=== PATIENT | male | born 1940 | race Caucasian/White ===

== ENCOUNTER 2021-02-13 09:39 | Inpatient (IN) | payer MEDICARE, MEDICAID ==
[2021-02-13 10:18] LABS: Hemoglobin 7.6 g/dL (13.5-17.5); Mean Corpuscular HGB CONC 29.1 g/dL (32.0-36.0); Mean Corpuscular Hemoglobin 32.3 pg (27.0-33.0); Mean Corpuscular Volume 111.1 fl (81.2-95.1); Mean Platelet Volume 9.6 fl (7.4-10.4); Platelet Count 124 10x3/uL (150-450); RBC Distribution Width 16.9 % (11.5-14.5); Red Blood Cell (RBC) Count 2.35 10x6/uL (4.32-5.72); White Blood Cell (WBC) Count 9.9 10x3/uL (3.5-10.5)
[2021-02-13 10:35] LABS: MDiff Complete? YES
[2021-02-13 10:45] LABS: ALT (SGPT) 10 U/L (8-55); AST (SGOT) 22 U/L (5-34); Albumin 2.1 g/dL (3.4-4.8); Alkaline Phosphatase 80 U/L (40-110); Anion Gap 15 mmol/L (10-20); BUN (Urea Nitrogen) 71 mg/dL (8.4-25.7); Bilirubin, Total 0.2 mg/dL (0.2-1.2); Calc. Creatinine Clearance 0 mL/min (70-130); Calcium 8.8 mg/dL (7.8-10.44); Carbon Dioxide 17 mmol/L (23-31); Globulin 4.6 g/dL (2.4-3.5); Glucose 89 mg/dL (83-110); Potassium 4.6 mmol/L (3.5-5.1); Protein, Total 6.7 g/dL (5.8-8.1); Sodium 154 mmol/L (136-145)
[2021-02-13 10:50] LABS: Chloride 127 mmol/L (98-107)
[2021-02-13 10:58] LABS: Band 11 % (5-11); Lymphocytes 15 % (21-51); Metamyelocyte 1 % (0-0); Monocytes 11 % (0-10); Myelocyte 1 % (0-0); Neutrophil 61 % (42-75)
[2021-02-13 10:59] LABS: Macrocytosis SLIGHT = 6-15 cells (100X) (0-5/hpf)
[2021-02-13] MEDS ORDERED: Cefepime 2 GM VIAL ONE (10:59)
[2021-02-13 11:00] LABS: Hypochromia SLIGHT = 6-15 cells (100X) (0-5/hpf)
[2021-02-13 11:01] LABS: Platelet Morphology Comment Appears Decreased
[2021-02-13 11:06] LABS: CKMB 3.9 ng/mL (0-6.6)
[2021-02-13] MEDS ORDERED: Acetaminophen 650 MG Suppository PR PRN (13:27)
[2021-02-13] MEDS ORDERED: Acetaminophen 325 MG TAB PO PRN (13:27)
[2021-02-13 13:34] LABS: Lactic Acid 1.9 mmol/L (0.5-2.2)
[2021-02-13] MEDS ORDERED: Dextrose 5% in Water 1,000 ML IV SCH (14:00)
[2021-02-13] MEDS ORDERED: Pharmacy to Dose UNASYN IVPB PRN (14:07)
[2021-02-13 14:42] LABS: Troponin I 0.033 ng/mL (< 0.028)
[2021-02-13 15:09] LABS: Anion Gap 15 mmol/L (10-20); BUN (Urea Nitrogen) 69 mg/dL (8.4-25.7); Calc. Creatinine Clearance 0 mL/min (70-130); Calcium 8.2 mg/dL (7.8-10.44); Carbon Dioxide 16 mmol/L (23-31); Glucose 91 mg/dL (83-110); Potassium 4.8 mmol/L (3.5-5.1); Sodium 154 mmol/L (136-145)
[2021-02-13 15:11] LABS: Hemoglobin 7.8 g/dL (13.5-17.5)
[2021-02-13 15:32] LABS: Chloride 128 mmol/L (98-107)
[2021-02-13 16:05] LABS: Base Excess (BEa) -7.9 mEq/L (-2.0 to +3.0); Calcium, Ionized (arterial) 1.27 mmol/L (1.12-1.30); Carboxyhemoglobin (COHb) 1.1 gm% (0.0-3.0); Hemoglobin (Hb) 8.4 g/dL (14.0-18.0); O2 Tension (PaO2), arterial 71.1 mmHg (> 70.0); Potassium - ABG Lab 4.7 mmol/L (3.70-5.30); Puncture Site RRA; pH, Arterial 7.34 (7.35-7.45)
[2021-02-13 16:09] VITALS: BMI 21.1
[2021-02-13] MEDS ORDERED: Vancomycin HCl 500 MG in Sodium Chloride 0.9% 100 ML IVPB SCH (16:30)
[2021-02-13] MEDS ORDERED: Vancomycin 1 GM in Premix Bag 1 BAG IVPB SCH (16:30)
[2021-02-13] MEDS ORDERED: Vancomycin HCl 250 MG in Sodium Chloride 0.9% 100 ML IVPB SCH (16:30)
[2021-02-13] MEDS ORDERED: HOLD VANCOMYCIN FOR LEVEL >20 FS SCH (16:30)
[2021-02-13] MEDS ORDERED: Vancomycin HCl 750 MG in Sodium Chloride 0.9% 250 ML 250 ML IVPB SCH (16:30)
[2021-02-13 17:46] LABS: Anion Gap 15 mmol/L (10-20); BUN (Urea Nitrogen) 68 mg/dL (8.4-25.7); Calc. Creatinine Clearance 18 mL/min (70-130); Carbon Dioxide 14 mmol/L (23-31); Glucose 80 mg/dL (83-110); Potassium 5.1 mmol/L (3.5-5.1); Sodium 153 mmol/L (136-145)
[2021-02-13 17:58] LABS: Chloride 129 mmol/L (98-107)
[2021-02-13] MEDS: Acetylcysteine 800 MG/4 ML VIAL INH SCH (18:35)
[2021-02-13] MEDS ORDERED: Sodium Bicarbonate 50 MEQ in Dextrose 5% in Water 1,000 ML IV SCH (19:00)
[2021-02-13 20:03] LABS: Troponin I 0.041 ng/mL (< 0.028)
[2021-02-13 20:52] LABS: Hemoglobin 7.8 g/dL (13.5-17.5)
[2021-02-13] MEDS ORDERED: Desmopressin 0.2 mg Tablet PO SCH (21:00)
[2021-02-13 21:03] LABS: Anion Gap 15 mmol/L (10-20); BUN (Urea Nitrogen) 66 mg/dL (8.4-25.7); Calc. Creatinine Clearance 18 mL/min (70-130); Calcium 9.2 mg/dL (7.8-10.44); Carbon Dioxide 17 mmol/L (23-31); Glucose 96 mg/dL (83-110); Potassium 4.5 mmol/L (3.5-5.1); Sodium 155 mmol/L (136-145)
[2021-02-13 21:05] LABS: Chloride 128 mmol/L (98-107)
[2021-02-14] MEDS: Acetylcysteine 800 MG/4 ML VIAL INH SCH ×4 (00:40→19:03)
[2021-02-14 05:07] LABS: Vancomycin, Random 11.4 ug/mL (See Comment)
[2021-02-14 05:09] LABS: Hemoglobin 7.6 g/dL (13.5-17.5); Mean Corpuscular HGB CONC 29.7 g/dL (32.0-36.0); Mean Corpuscular Hemoglobin 32.2 pg (27.0-33.0); Mean Corpuscular Volume 108.5 fl (81.2-95.1); Mean Platelet Volume 9.5 fl (7.4-10.4); Platelet Count 120 10x3/uL (150-450); RBC Distribution Width 16.9 % (11.5-14.5); Red Blood Cell (RBC) Count 2.36 10x6/uL (4.32-5.72)
[2021-02-14 05:11] LABS: Anion Gap 14 mmol/L (10-20); BUN (Urea Nitrogen) 61 mg/dL (8.4-25.7); Calc. Creatinine Clearance 20 mL/min (70-130); Calcium 9.3 mg/dL (7.8-10.44); Carbon Dioxide 18 mmol/L (23-31); Glucose 110 mg/dL (83-110); Potassium 4.6 mmol/L (3.5-5.1); Sodium 155 mmol/L (136-145)
[2021-02-14 05:13] LABS: Chloride 128 mmol/L (98-107)
[2021-02-14 05:24] LABS: MDiff Complete? YES
[2021-02-14 05:34] LABS: Band 13 % (5-11); Lymphocytes 19 % (21-51); Monocytes 14 % (0-10); Neutrophil 54 % (42-75)
[2021-02-14 05:35] LABS: Platelet Morphology Comment Appears Decreased; RBC Morphology Normal
[2021-02-14] MEDS ORDERED: Vancomycin 1 GM in Premix Bag 1 BAG IVPB PRN (06:45)
[2021-02-14] MEDS ORDERED: Sodium Bicarbonate 50 MEQ in Dextrose 5% in Water 1,000 ML IV SCH (07:30)
[2021-02-14 07:36] LABS: SARS-CoV-2 NAA Rapid Test Not Detected (NotDetected)
[2021-02-14] MEDS ORDERED: Vancomycin HCl 1 GM in Sodium Chloride 0.9% 250 ML 250 ML IVPB SCH (08:00)
[2021-02-14] MEDS: Dextrose 5% in Water 1,000 ML IV SCH ×2 (08:15→17:15)
[2021-02-14 09:51] LABS: Iron 17 ug/dL (65-175); Iron Binding Capacity, Total 125 mcg/dL (261-462)
[2021-02-14 10:06] LABS: Anion Gap 15 mmol/L (10-20); BUN (Urea Nitrogen) 59 mg/dL (8.4-25.7); Calc. Creatinine Clearance 20 mL/min (70-130); Calcium 9.4 mg/dL (7.8-10.44); Carbon Dioxide 18 mmol/L (23-31); Glucose 90 mg/dL (83-110); Potassium 4.5 mmol/L (3.5-5.1); Sodium 156 mmol/L (136-145)
[2021-02-14 10:11] LABS: Chloride 128 mmol/L (98-107)
[2021-02-14] MEDS: Cefepime 0.5 GM, Admixture Fee 1 EACH in Sodium Chloride 0.9% 100 ML IVPB SCH (12:00)
[2021-02-14 17:45] LABS: Anion Gap 14 mmol/L (10-20); BUN (Urea Nitrogen) 59 mg/dL (8.4-25.7); Calc. Creatinine Clearance 21 mL/min (70-130); Calcium 9.8 mg/dL (7.8-10.44); Carbon Dioxide 18 mmol/L (23-31); Glucose 84 mg/dL (83-110); Potassium 4.3 mmol/L (3.5-5.1); Sodium 154 mmol/L (136-145)
[2021-02-14 18:03] LABS: Chloride 126 mmol/L (98-107)
[2021-02-14] MEDS ORDERED: Sodium Bicarbonate 50 MEQ, Admixture Fee 1 EACH in Dextrose 5% in Water 1,000 ML IV SCH (18:30)
[2021-02-14 22:01] LABS: Anion Gap 13 mmol/L (10-20); BUN (Urea Nitrogen) 58 mg/dL (8.4-25.7); Calc. Creatinine Clearance 21 mL/min (70-130); Calcium 9.7 mg/dL (7.8-10.44); Carbon Dioxide 18 mmol/L (23-31); Glucose 105 mg/dL (83-110); Sodium 153 mmol/L (136-145)
[2021-02-14 22:09] LABS: Chloride 126 mmol/L (98-107)
[2021-02-15] MEDS: Acetylcysteine 800 MG/4 ML VIAL INH SCH ×4 (01:50→19:15)
[2021-02-15 06:30] LABS: Hemoglobin 7.7 g/dL (13.5-17.5); Mean Corpuscular HGB CONC 30.4 g/dL (32.0-36.0); Mean Corpuscular Hemoglobin 32.5 pg (27.0-33.0); Mean Corpuscular Volume 106.8 fl (81.2-95.1); Mean Platelet Volume 9.7 fl (7.4-10.4); Platelet Count 137 10x3/uL (150-450); RBC Distribution Width 16.8 % (11.5-14.5); Red Blood Cell (RBC) Count 2.37 10x6/uL (4.32-5.72)
[2021-02-15 06:42] LABS: MDiff Complete? YES
[2021-02-15 06:43] LABS: Platelet Morphology Comment Appears Adequate
[2021-02-15 06:44] LABS: Anisocytosis SLIGHT = 6-15 cells (100X) (0-5/hpf); Hypochromia MODERATE=16-30 cells (100X) (0-5/hpf)
[2021-02-15 06:45] LABS: Anion Gap 14 mmol/L (10-20); BUN (Urea Nitrogen) 52 mg/dL (8.4-25.7); Calc. Creatinine Clearance 22 mL/min (70-130); Calcium 9.8 mg/dL (7.8-10.44); Carbon Dioxide 18 mmol/L (23-31); Chloride 123 mmol/L (98-107); Glucose 102 mg/dL (83-110); Potassium 4.2 mmol/L (3.5-5.1); Sodium 151 mmol/L (136-145)
[2021-02-15 06:47] LABS: Band 16 % (5-11); Eosinophils 1 % (0-10); Lymphocytes 11 % (21-51); Monocytes 15 % (0-10); Neutrophil 49 % (42-75)
[2021-02-15 06:48] LABS: Metamyelocyte 5 % (0-0); Promyelocytes 1 % (0-0)
[2021-02-15] MEDS ORDERED: Lorazepam 2 MG/ML VIAL SLOW IVP PRN (08:19)
[2021-02-15] MEDS ORDERED: Metoprolol Tartrate 5 MG/5 ML VIAL IVP SCH (08:30)
[2021-02-15] MEDS ORDERED: FLU VACC QS2021-22(65YR UP)/PF 240 MCG/0.7 ML SYRINGE IM ONE (09:00)
[2021-02-15] MEDS: Dextrose 5% in Water 1,000 ML IV SCH (09:23)
[2021-02-15] MEDS: acetaZOLAMIDE Sodium 500 mg Vial IVP SCH ×2 (09:29→23:25)
[2021-02-15 09:32] LABS: Vancomycin, Random 17.6 ug/mL (See Comment)
[2021-02-15] MEDS: Valproate Sodium 500 MG, Admixture Fee 1 EACH in Sodium Chloride 0.9% 100 ML IVPB SCH ×2 (09:45→23:13)
[2021-02-15] MEDS: Cefepime 0.5 GM, Admixture Fee 1 EACH in Sodium Chloride 0.9% 100 ML IVPB SCH (11:50)
[2021-02-15] MEDS ORDERED: Acetylcysteine 800 MG/4 ML VIAL ONE (14:45)
[2021-02-15] MEDS: Sodium Bicarbonate 150 MEQ, Admixture Fee 1 EACH in Dextrose 5% in Water 1,000 ML IV SCH (14:57)
[2021-02-15 20:23] LABS: Anion Gap 13 mmol/L (10-20); BUN (Urea Nitrogen) 46 mg/dL (8.4-25.7); Calc. Creatinine Clearance 23 mL/min (70-130); Calcium 9.6 mg/dL (7.8-10.44); Carbon Dioxide 21 mmol/L (23-31); Chloride 120 mmol/L (98-107); Glucose 98 mg/dL (83-110); Potassium 3.4 mmol/L (3.5-5.1); Sodium 151 mmol/L (136-145)
[2021-02-15] MEDS: Vancomycin HCl 1 GM in Sodium Chloride 0.9% 250 ML 250 ML IVPB SCH (23:14)
[2021-02-16] MEDS: Dextrose 5% in Water 1,000 ML IV SCH ×6 (01:32→23:17)
[2021-02-16] MEDS: Acetylcysteine 800 MG/4 ML VIAL INH SCH ×2 (01:47→07:00)
[2021-02-16 05:41] LABS: Hemoglobin 8.1 g/dL (13.5-17.5); Mean Corpuscular Volume 106.7 fl (81.2-95.1); Mean Platelet Volume 9.6 fl (7.4-10.4); Platelet Count 152 10x3/uL (150-450); Red Blood Cell (RBC) Count 2.53 10x6/uL (4.32-5.72); White Blood Cell (WBC) Count 10.4 10x3/uL (3.5-10.5)
[2021-02-16 05:43] LABS: Anion Gap 15 mmol/L (10-20); BUN (Urea Nitrogen) 45 mg/dL (8.4-25.7); Calc. Creatinine Clearance 24 mL/min (70-130); Calcium 9.4 mg/dL (7.8-10.44); Carbon Dioxide 22 mmol/L (23-31); Chloride 123 mmol/L (98-107); Glucose 86 mg/dL (83-110); Potassium 3.9 mmol/L (3.5-5.1); Sodium 156 mmol/L (136-145)
[2021-02-16 06:03] LABS: MDiff Complete? YES
[2021-02-16 06:09] LABS: Band 18 % (5-11); Lymphocytes 23 % (21-51); Metamyelocyte 6 % (0-0); Monocytes 12 % (0-10); Myelocyte 1 % (0-0); Neutrophil 38 % (42-75); Nucleated RBC 3 % (0); Promyelocytes 2 % (0-0)
[2021-02-16] MEDS: Valproate Sodium 500 MG, Admixture Fee 1 EACH in Sodium Chloride 0.9% 100 ML IVPB SCH ×2 (07:45→21:24)
[2021-02-16] MEDS: Sodium Bicarbonate 150 MEQ, Admixture Fee 1 EACH in Dextrose 5% in Water 1,000 ML IV SCH (07:47)
[2021-02-16] MEDS ORDERED: Docusate 100 MG CAP PO PRN (08:02)
[2021-02-16] MEDS ORDERED: Polyethylene Glycol 3350 17 GM Packet PO PRN (08:02)
[2021-02-16] MEDS ORDERED: Levothyroxine Sodium 88 MCG TAB PO SCH (08:15)
[2021-02-16] MEDS ORDERED: Metoprolol Tartrate 5 MG/5 ML VIAL IVP SCH (08:50)
[2021-02-16] MEDS: Trospium 20 MG TAB PO SCH (11:15)
[2021-02-16] MEDS: Multivitamin W/ Minerals 1 TAB PO SCH (11:16)
[2021-02-16 11:47] LABS: Anion Gap 11 mmol/L (10-20); BUN (Urea Nitrogen) 43 mg/dL (8.4-25.7); Calc. Creatinine Clearance 24 mL/min (70-130); Calcium 9.1 mg/dL (7.8-10.44); Carbon Dioxide 26 mmol/L (23-31); Chloride 120 mmol/L (98-107); Glucose 105 mg/dL (83-110); Potassium 3.1 mmol/L (3.5-5.1); Sodium 154 mmol/L (136-145)
[2021-02-16] MEDS: Vancomycin 1 GM in Premix Bag 1 BAG IVPB SCH ×2 (12:21→12:40)
[2021-02-16] MEDS: Cefepime 0.5 GM, Admixture Fee 1 EACH in Sodium Chloride 0.9% 100 ML IVPB SCH (12:25)
[2021-02-16] MEDS: Metoprolol Tartrate 5 MG/5 ML VIAL IVP SCH ×2 (12:26→17:17)
[2021-02-16] MEDS ORDERED: Potassium Phosphate 15 MMOL, Admixture Fee 1 EACH in Sodium Chloride 0.9% 250 ML 250 ML IVPB SCH (16:00)
[2021-02-16 17:50] LABS: Anion Gap 14 mmol/L (10-20); BUN (Urea Nitrogen) 41 mg/dL (8.4-25.7); Calc. Creatinine Clearance 25 mL/min (70-130); Calcium 9.1 mg/dL (7.8-10.44); Carbon Dioxide 22 mmol/L (23-31); Chloride 118 mmol/L (98-107); Glucose 91 mg/dL (83-110); Potassium 3.3 mmol/L (3.5-5.1); Sodium 151 mmol/L (136-145)
[2021-02-16] MEDS: Mirtazapine 15 MG TAB PO SCH (21:10)
[2021-02-17] MEDS: Metoprolol Tartrate 5 MG/5 ML VIAL IVP SCH ×4 (01:31→18:29)
[2021-02-17] MEDS: Dextrose 5% in Water 1,000 ML IV SCH ×3 (04:46→15:22)
[2021-02-17] MEDS: Levothyroxine Sodium 88 MCG TAB PO SCH (05:09)
[2021-02-17] MEDS: Vancomycin HCl 1 GM in Sodium Chloride 0.9% 250 ML 250 ML IVPB SCH (08:10)
[2021-02-17] MEDS: Valproate Sodium 500 MG, Admixture Fee 1 EACH in Sodium Chloride 0.9% 100 ML IVPB SCH ×2 (08:10→20:36)
[2021-02-17] MEDS: Potassium Bicarbonate/Cit Ac 20 MEQ TAB PO SCH ×2 (08:23→11:10)
[2021-02-17] MEDS: AcetaZOLAMIDE 250 MG TAB PO SCH ×2 (08:24→22:14)
[2021-02-17] MEDS: Multivitamin W/ Minerals 1 TAB PO SCH (08:24)
[2021-02-17] MEDS: Trospium 20 MG TAB PO SCH (08:24)
[2021-02-17] MEDS: Sodium Bicarbonate Tab 325 MG TAB PO SCH ×2 (08:24→22:14)
[2021-02-17 10:14] LABS: Vancomycin, Trough 18.8 ug/mL
[2021-02-17 10:16] LABS: Anion Gap 13 mmol/L (10-20); BUN (Urea Nitrogen) 37 mg/dL (8.4-25.7); Calc. Creatinine Clearance 26 mL/min (70-130); Calcium 8.7 mg/dL (7.8-10.44); Carbon Dioxide 25 mmol/L (23-31); Chloride 113 mmol/L (98-107); Glucose 70 mg/dL (83-110); Sodium 148 mmol/L (136-145)
[2021-02-17 10:24] LABS: Potassium 2.6 mmol/L (3.5-5.1)
[2021-02-17] MEDS ORDERED: Potassium Chloride 40 MEQ in Premix Bag 1 BAG IVPB SCH ×2 (10:30→15:15)
[2021-02-17] MEDS: Potassium Chloride 20 MEQ in Premix Bag 1 BAG IVPB SCH ×6 (10:48→22:01)
[2021-02-17] MEDS: Cefepime 0.5 GM, Admixture Fee 1 EACH in Sodium Chloride 0.9% 100 ML IVPB SCH (12:45)
[2021-02-17 14:51] LABS: Anion Gap 10 mmol/L (10-20); BUN (Urea Nitrogen) 35 mg/dL (8.4-25.7); Calc. Creatinine Clearance 28 mL/min (70-130); Calcium 8.5 mg/dL (7.8-10.44); Carbon Dioxide 24 mmol/L (23-31); Chloride 115 mmol/L (98-107); Glucose 85 mg/dL (83-110); Sodium 146 mmol/L (136-145)
[2021-02-17 15:02] LABS: Potassium 2.7 mmol/L (3.5-5.1)
[2021-02-17] MEDS: Ampicillin/Sulbactam 3 GM in Sodium Chloride 0.9% 100 ML IVPB SCH (17:48)
[2021-02-17 21:05] LABS: Magnesium 1.7 mg/dL (1.6-2.6)
[2021-02-17] MEDS: Mirtazapine 15 MG TAB PO SCH (22:14)
[2021-02-18] MEDS: Metoprolol Tartrate 5 MG/5 ML VIAL IVP SCH ×4 (00:14→18:01)
[2021-02-18] MEDS: Dextrose 5% in Water 1,000 ML IV SCH ×3 (00:14→17:00)
[2021-02-18] MEDS: Ampicillin/Sulbactam 3 GM in Sodium Chloride 0.9% 100 ML IVPB SCH ×2 (04:52→18:30)
[2021-02-18 05:33] LABS: Hemoglobin 6.9 g/dL (13.5-17.5); Mean Corpuscular HGB CONC 30.8 g/dL (32.0-36.0); Mean Corpuscular Hemoglobin 31.8 pg (27.0-33.0); Mean Corpuscular Volume 103.2 fl (81.2-95.1); Platelet Count 133 10x3/uL (150-450); RBC Distribution Width 17.4 % (11.5-14.5); Red Blood Cell (RBC) Count 2.17 10x6/uL (4.32-5.72); White Blood Cell (WBC) Count 12.6 10x3/uL (3.5-10.5)
[2021-02-18] MEDS: Levothyroxine Sodium 88 MCG TAB PO SCH (05:49)
[2021-02-18 05:52] LABS: MDiff Complete? YES
[2021-02-18 05:53] LABS: Anion Gap 12 mmol/L (10-20); BUN (Urea Nitrogen) 32 mg/dL (8.4-25.7); Calc. Creatinine Clearance 28 mL/min (70-130); Calcium 8.7 mg/dL (7.8-10.44); Carbon Dioxide 20 mmol/L (23-31); Chloride 120 mmol/L (98-107); Glucose 111 mg/dL (83-110); Potassium 4.4 mmol/L (3.5-5.1); Sodium 148 mmol/L (136-145)
[2021-02-18 05:57] LABS: Band 28 % (5-11); Eosinophils 1 % (0-10); Lymphocytes 7 % (21-51); Metamyelocyte 3 % (0-0); Monocytes 4 % (0-10); Myelocyte 6 % (0-0); Neutrophil 50 % (42-75); Reactive Lymphocytes 1 % (0-10)
[2021-02-18 05:58] LABS: Nucleated RBC 1 % (0)
[2021-02-18 05:59] LABS: Platelet Morphology Comment Appears Adequate; RBC Morphology Normal
[2021-02-18 06:02] LABS: Reflex for Review?? YES
[2021-02-18] MEDS ORDERED: Magnesium 2 GM/50 ML 2 GM in Premix Bag 1 BAG IVPB SCH (06:45)
[2021-02-18 09:02] LABS: Hemoglobin 7.2 g/dL (13.5-17.5)
[2021-02-18] MEDS: AcetaZOLAMIDE 250 MG TAB PO SCH (10:06)
[2021-02-18] MEDS: Multivitamin W/ Minerals 1 TAB PO SCH (10:07)
[2021-02-18] MEDS: Trospium 20 MG TAB PO SCH (10:09)
[2021-02-18] MEDS: Sodium Bicarbonate Tab 325 MG TAB PO SCH ×2 (10:09→23:41)
[2021-02-18] MEDS: Valproate Sodium 500 MG, Admixture Fee 1 EACH in Sodium Chloride 0.9% 100 ML IVPB SCH ×2 (10:29→21:45)
[2021-02-18 19:26] LABS: Bilirubin Neg (Negative); Blood, Urine 250 (Negative); Clarity Clear (Clear); Glucose, Urine (Dipstick) Normal (Negative); Ketone, Urine Negative (Negative); Leukocyte 500 (Negative); Nitrite Negative (Negative); Protein, Urine (Dipstick) 15 mg/dl (Neg-Trace); Urobilinogen Normal mg/dL (Less than 2)
[2021-02-18 19:31] LABS: Urine Culture Reflex No No
[2021-02-18 19:46] LABS: Bacteria/HPF Rare-Few HPF (None Seen); Squamous Epithelial 0-3 HPF (0-3)
[2021-02-18] MEDS: Mirtazapine 15 MG TAB PO SCH (23:41)
[2021-02-19] MEDS: Metoprolol Tartrate 5 MG/5 ML VIAL IVP SCH ×4 (00:40→19:52)
[2021-02-19] MEDS: Dextrose 5% in Water 1,000 ML IV SCH ×4 (00:54→19:53)
[2021-02-19 05:32] LABS: Anion Gap 11 mmol/L (10-20); BUN (Urea Nitrogen) 25 mg/dL (8.4-25.7); Calc. Creatinine Clearance 29 mL/min (70-130); Calcium 9.1 mg/dL (7.8-10.44); Carbon Dioxide 20 mmol/L (23-31); Chloride 121 mmol/L (98-107); Glucose 100 mg/dL (83-110); Potassium 4.1 mmol/L (3.5-5.1); Sodium 148 mmol/L (136-145)
[2021-02-19] MEDS: Ampicillin/Sulbactam 3 GM in Sodium Chloride 0.9% 100 ML IVPB SCH ×2 (06:29→19:52)
[2021-02-19] MEDS: Levothyroxine Sodium 88 MCG TAB PO SCH (06:36)
[2021-02-19 06:55] LABS: Hemoglobin 7.2 g/dL (13.5-17.5); Mean Corpuscular HGB CONC 30.3 g/dL (32.0-36.0); Mean Corpuscular Hemoglobin 31.6 pg (27.0-33.0); Mean Corpuscular Volume 104.4 fl (81.2-95.1); Platelet Count 143 10x3/uL (150-450); RBC Distribution Width 17.2 % (11.5-14.5); Red Blood Cell (RBC) Count 2.28 10x6/uL (4.32-5.72); White Blood Cell (WBC) Count 14.6 10x3/uL (3.5-10.5)
[2021-02-19 08:24] LABS: MDiff Complete? YES
[2021-02-19 08:28] LABS: Band 6 % (5-11); Eosinophils 3 % (0-10); Lymphocytes 8 % (21-51); Metamyelocyte 4 % (0-0); Monocytes 4 % (0-10); Myelocyte 3 % (0-0); Neutrophil 66 % (42-75); Promyelocytes 3 % (0-0); Reactive Lymphocytes 2 % (0-10)
[2021-02-19 08:30] LABS: Platelet Morphology Comment Appears Adequate
[2021-02-19 08:31] LABS: Dohle Bodies SLIGHT; RBC Morphology Normal
[2021-02-19] MEDS: Multivitamin W/ Minerals 1 TAB PO SCH (09:21)
[2021-02-19] MEDS: Sodium Bicarbonate Tab 325 MG TAB PO SCH (09:22)
[2021-02-19] MEDS: Trospium 20 MG TAB PO SCH (09:23)
[2021-02-19] MEDS: Valproate Sodium 500 MG, Admixture Fee 1 EACH in Sodium Chloride 0.9% 100 ML IVPB SCH ×2 (09:35→21:40)
[2021-02-20] MEDS: Mirtazapine 15 MG TAB PO SCH ×2 (01:19→20:03)
[2021-02-20] MEDS: Dextrose 5% in Water 1,000 ML IV SCH ×2 (01:20→11:54)
[2021-02-20] MEDS: Metoprolol Tartrate 5 MG/5 ML VIAL IVP SCH ×4 (01:20→18:15)
[2021-02-20] MEDS: Sodium Bicarbonate Tab 325 MG TAB PO SCH ×3 (01:20→20:04)
[2021-02-20 05:23] LABS: Anion Gap 10 mmol/L (10-20); BUN (Urea Nitrogen) 20 mg/dL (8.4-25.7); Calc. Creatinine Clearance 31 mL/min (70-130); Calcium 8.9 mg/dL (7.8-10.44); Carbon Dioxide 19 mmol/L (23-31); Chloride 116 mmol/L (98-107); Glucose 117 mg/dL (83-110); Potassium 3.4 mmol/L (3.5-5.1); Sodium 142 mmol/L (136-145)
[2021-02-20] MEDS: Ampicillin/Sulbactam 3 GM in Sodium Chloride 0.9% 100 ML IVPB SCH ×2 (05:44→18:00)
[2021-02-20] MEDS ORDERED: Dextrose 5% in Water 1,000 ML IV SCH ×2 (06:49→11:31)
[2021-02-20 07:14] LABS: Hemoglobin 7.6 g/dL (13.5-17.5); Mean Corpuscular HGB CONC 29.9 g/dL (32.0-36.0); Mean Corpuscular Hemoglobin 31.3 pg (27.0-33.0); Mean Corpuscular Volume 104.5 fl (81.2-95.1); Mean Platelet Volume 10.2 fl (7.4-10.4); Platelet Count 120 10x3/uL (150-450); RBC Distribution Width 17.2 % (11.5-14.5); Red Blood Cell (RBC) Count 2.43 10x6/uL (4.32-5.72); White Blood Cell (WBC) Count 20.2 10x3/uL (3.5-10.5)
[2021-02-20 07:54] LABS: MDiff Complete? YES
[2021-02-20 07:59] LABS: Band 11 % (5-11); Lymphocytes 13 % (21-51); Monocytes 2 % (0-10); Nucleated RBC 3 % (0); Reactive Lymphocytes 4 % (0-10)
[2021-02-20] MEDS ORDERED: Sodium Bicarbonate 150 MEQ in Dextrose 5% in Water 1,000 ML IV SCH (08:00)
[2021-02-20 08:01] LABS: Neutrophil 57 % (42-75); Platelet Morphology Comment Appears Decreased
[2021-02-20 08:02] LABS: Hypochromia SLIGHT = 6-15 cells (100X) (0-5/hpf); Macrocytosis SLIGHT = 6-15 cells (100X) (0-5/hpf); Polychromasia SLIGHT = 2-3 cells (100X) (0-2/hpf); Reflex for Review?? YES
[2021-02-20] MEDS: Levothyroxine Sodium 88 MCG TAB PO SCH (08:08)
[2021-02-20] MEDS: Multivitamin W/ Minerals 1 TAB PO SCH (11:35)
[2021-02-20] MEDS: Trospium 20 MG TAB PO SCH (11:37)
[2021-02-20] MEDS: Valproate Sodium 500 MG, Admixture Fee 1 EACH in Sodium Chloride 0.9% 100 ML IVPB SCH ×2 (11:37→22:41)
[2021-02-20] MEDS ORDERED: acetaZOLAMIDE Sodium 500 mg Vial IVP SCH (12:30)
[2021-02-20 14:48] LABS: Eosinophils 2 % (0-10)
[2021-02-20 15:01] LABS: Myelocyte 7 % (0-0)
[2021-02-20 15:20] LABS: Promyelocytes 2 % (0-0)
[2021-02-20 15:25] LABS: Metamyelocyte 2 % (0-0)
[2021-02-20] MEDS: acetaZOLAMIDE Sodium 500 mg Vial IVP SCH (22:07)
[2021-02-21] MEDS: Ampicillin/Sulbactam 3 GM in Sodium Chloride 0.9% 100 ML IVPB SCH ×4 (00:03→17:39)
[2021-02-21] MEDS: Metoprolol Tartrate 5 MG/5 ML VIAL IVP SCH ×4 (00:23→17:42)
[2021-02-21] MEDS: Levothyroxine Sodium 88 MCG TAB PO SCH (04:59)
[2021-02-21] MEDS ORDERED: Furosemide 20 MG/2 ML VIAL SLOW IVP SCH (06:00)
[2021-02-21 06:40] LABS: Anion Gap 13 mmol/L (10-20); BUN (Urea Nitrogen) 19 mg/dL (8.4-25.7); Calc. Creatinine Clearance 31 mL/min (70-130); Calcium 8.9 mg/dL (7.8-10.44); Carbon Dioxide 21 mmol/L (23-31); Chloride 118 mmol/L (98-107); Glucose 100 mg/dL (83-110); Sodium 149 mmol/L (136-145)
[2021-02-21 06:49] LABS: Hemoglobin 7.5 g/dL (13.5-17.5); Mean Corpuscular HGB CONC 29.4 g/dL (32.0-36.0); Mean Corpuscular Hemoglobin 31.6 pg (27.0-33.0); Mean Corpuscular Volume 107.6 fl (81.2-95.1); Mean Platelet Volume 10.7 fl (7.4-10.4); Platelet Count 90 10x3/uL (150-450); RBC Distribution Width 17.2 % (11.5-14.5); Red Blood Cell (RBC) Count 2.37 10x6/uL (4.32-5.72); White Blood Cell (WBC) Count 22.6 10x3/uL (3.5-10.5)
[2021-02-21] MEDS ORDERED: Dextrose 5% in Water 1,000 ML IV SCH (07:30)
[2021-02-21] MEDS: Valproate Sodium 500 MG, Admixture Fee 1 EACH in Sodium Chloride 0.9% 100 ML IVPB SCH (08:31)
[2021-02-21] MEDS: Trospium 20 MG TAB PO SCH (08:51)
[2021-02-21] MEDS: Sodium Bicarbonate Tab 325 MG TAB PO SCH (08:51)
[2021-02-21] MEDS: Multivitamin W/ Minerals 1 TAB PO SCH (08:52)
[2021-02-21] MEDS ORDERED: Furosemide 40 MG/4 ML VIAL SLOW IVP PRN (09:32)
[2021-02-21] MEDS: acetaZOLAMIDE Sodium 500 mg Vial IVP SCH (09:59)
[2021-02-21 12:39] LABS: Anion Gap 12 mmol/L (10-20); BUN (Urea Nitrogen) 19 mg/dL (8.4-25.7); Calc. Creatinine Clearance 33 mL/min (70-130); Calcium 8.1 mg/dL (7.8-10.44); Carbon Dioxide 21 mmol/L (23-31); Chloride 117 mmol/L (98-107); Glucose 104 mg/dL (83-110); Potassium 3.2 mmol/L (3.5-5.1); Sodium 147 mmol/L (136-145)
[2021-02-21] MEDS ORDERED: Sodium Chloride 0.9% 100 ML ONE (17:09)
[2021-02-21] MEDS ORDERED: Haloperidol Lactate 5 MG/ML VIAL SLOW IVP PRN (21:30)
[2021-02-21] MEDS ORDERED: Scopolamine 1.5 mg/72 hour Patch TOP PRN ×2 (21:30)
[2021-02-21] MEDS ORDERED: Ondansetron PF 4 MG/2 ML Vial IVP PRN (21:30)
[2021-02-21] MEDS ORDERED: Lorazepam 1 MG TAB PO PRN (21:30)
[2021-02-21] MEDS ORDERED: Lorazepam 2 MG/ML VIAL SLOW IVP PRN (21:30)
[2021-02-21] MEDS ORDERED: Morphine 10 MG/0.5 ML ORAL SYRINGE SL PRN (21:30)
[2021-02-21] MEDS ORDERED: Acetaminophen 650 MG Suppository PR PRN (21:30)
[2021-02-21 23:42] VITALS: BP 112/56; TEMP 95.6
[2021-02-22 16:16] LABS: SARS-CoV-2 PCR by NAA Not Detected (NotDetected)
== END 2021-02-22 04:01 | disposition hospice, inpatient (51) | DRG 871 ==
LOC: CSHERS 09:39 → CSHTELE 14:29
PROVIDERS: ADMIT Internal Medicine; ATTEND Family Medicine
DX: A41.81 Sepsis due to Enterococcus (principal); J69.0 Pneumonitis due to inhalation of food and vomit; J96.01 Acute respiratory failure with hypoxia; N17.9 Acute kidney failure, unspecified; Z51.5 Encounter for palliative care; Z66 Do not resuscitate; E87.0 Hyperosmolality and hypernatremia; E23.2 Diabetes insipidus; N18.4 Chronic kidney disease, stage 4 (severe); E87.2 Acidosis; G93.40 Encephalopathy, unspecified; G91.2 (Idiopathic) normal pressure hydrocephalus; K52.0 Gastroenteritis and colitis due to radiation; E46 Unspecified protein-calorie malnutrition; Z20.822 Contact with and (suspected) exposure to COVID-19; K21.9 Gastro-esophageal reflux disease without esophagitis; E03.9 Hypothyroidism, unspecified; E86.0 Dehydration; E78.5 Hyperlipidemia, unspecified; D63.1 Anemia in chronic kidney disease; G40.909 Epilepsy, unspecified, not intractable, without status epilepticus; I12.9 Hypertensive chronic kidney disease with stage 1 through stage 4 chronic kidney disease, or unspecified chronic kidney disease; G31.84 Mild cognitive impairment of uncertain or unknown etiology; M79.89 Other specified soft tissue disorders; E86.9 Volume depletion, unspecified; F32.A Depression, unspecified; R13.12 Dysphagia, oropharyngeal phase; N32.81 Overactive bladder; E87.6 Hypokalemia; Z85.46 Personal history of malignant neoplasm of prostate; Z88.8 Allergy status to other drugs, medicaments and biological substances; Z79.899 Other long term (current) drug therapy; Z98.890 Other specified postprocedural states; Z68.21 Body mass index [BMI] 21.0-21.9, adult
CPT/HCPCS: 36415; 36416; 36600; 71045; 74176; 80048; 80053; 80202; 81001; 82274; 82553; 82805; 83540; 83550; 83605; 83735; 83880; 84100; 84145; 84484; 85025; 85027; 85060; 87040; 87077; 87086; 87149; 87186; 93005; 94640; 94667; 94668; 94760; 96365; 96366; J0295; J0692; J1120; J2597; J3370; J3475; J3480; J3490; J7050; J7070; J7620; U0002; U0003; U0005

== ENCOUNTER 2021-02-22 04:04 | Inpatient (IN) | payer MEDICARE, MEDICAID ==
[2021-02-22] MEDS ORDERED: Acetaminophen 650 MG Suppository PR PRN (05:15)
[2021-02-22] MEDS ORDERED: Lorazepam 1 MG TAB PO PRN (05:15)
[2021-02-22] MEDS ORDERED: Ondansetron PF 4 MG/2 ML Vial IVP PRN (05:15)
[2021-02-22] MEDS ORDERED: Haloperidol Lactate 5 MG/ML VIAL SLOW IVP PRN (05:15)
[2021-02-22] MEDS ORDERED: Scopolamine 1.5 mg/72 hour Patch TOP PRN ×2 (05:15)
[2021-02-22] MEDS ORDERED: Morphine 10 MG/0.5 ML ORAL SYRINGE SL PRN (05:15)
[2021-02-22] MEDS: Lorazepam 2 MG/ML VIAL SLOW IVP PRN ×2 (13:13→20:16)
[2021-02-23] MEDS ORDERED: Lorazepam 1 MG TAB PO PRN (10:10)
[2021-02-23] MEDS ORDERED: Lorazepam 2 MG/ML VIAL SLOW IVP PRN ×2 (10:15→10:45)
[2021-02-23] MEDS ORDERED: Morphine 4 MG/ML VIAL SLOW IVP PRN (10:17)
[2021-02-23] MEDS ORDERED: Morphine 20 MG/ML Oral Solution (ROXANOL) SL PRN (10:19)
[2021-02-23] MEDS: Morphine 4 MG/ML VIAL SLOW IVP SCH ×3 (11:09→21:56)
[2021-02-23] MEDS: Lorazepam 2 MG/ML VIAL SLOW IVP SCH ×3 (11:09→21:55)
[2021-02-24 00:48] VITALS: BMI 20.9
[2021-02-24] MEDS: Morphine 4 MG/ML VIAL SLOW IVP SCH ×4 (04:18→22:50)
[2021-02-24] MEDS: Lorazepam 2 MG/ML VIAL SLOW IVP SCH ×4 (04:18→22:52)
[2021-02-25] MEDS: Morphine 4 MG/ML VIAL SLOW IVP SCH ×3 (04:47→16:56)
[2021-02-25] MEDS: Lorazepam 2 MG/ML VIAL SLOW IVP SCH ×3 (04:49→16:56)
[2021-02-25 09:36] VITALS: BP 48/28; TEMP 80.9
== END 2021-02-25 19:50 | disposition expired | DRG 951 ==
LOC: UNDOADMIN 04:04 → CSHTELE 04:04
PROVIDERS: ADMIT Student in an Organized Health Care Education/Training Program; ATTEND Family Medicine
DX: Z51.5 Encounter for palliative care (principal); A41.9 Sepsis, unspecified organism; J69.0 Pneumonitis due to inhalation of food and vomit; Z66 Do not resuscitate; E87.0 Hyperosmolality and hypernatremia; E23.2 Diabetes insipidus; G91.2 (Idiopathic) normal pressure hydrocephalus; N18.4 Chronic kidney disease, stage 4 (severe); N17.9 Acute kidney failure, unspecified; G40.909 Epilepsy, unspecified, not intractable, without status epilepticus; D64.9 Anemia, unspecified; I12.9 Hypertensive chronic kidney disease with stage 1 through stage 4 chronic kidney disease, or unspecified chronic kidney disease; K52.9 Noninfective gastroenteritis and colitis, unspecified; R13.10 Dysphagia, unspecified; M79.89 Other specified soft tissue disorders; K21.9 Gastro-esophageal reflux disease without esophagitis; E03.9 Hypothyroidism, unspecified; E78.5 Hyperlipidemia, unspecified; F31.9 Bipolar disorder, unspecified; Z85.46 Personal history of malignant neoplasm of prostate; Z88.8 Allergy status to other drugs, medicaments and biological substances; Z98.890 Other specified postprocedural states
CPT/HCPCS: 94760; J2060; J2270